=== PATIENT | female | born 2000 | race Caucasian/White ===

== ENCOUNTER 2018-01-11 22:31 | Emergency (ER) | payer SELFPAY ==
[2018-01-11] MEDS ORDERED: Naproxen 500 MG TAB ONE (23:15)
== END 2018-01-11 23:35 | disposition home or self-care (01) ==
LOC: MADERS 22:31
DX: S89.82XA Other specified injuries of left lower leg, initial encounter (principal); S89.81XA Other specified injuries of right lower leg, initial encounter; Y93.79 Activity, other specified sports and athletics
CPT/HCPCS: 99283

== ENCOUNTER 2018-07-16 20:58 | Emergency (ER) | payer MEDICAID, SELFPAY | END 2018-07-16 21:30 | disposition home or self-care (01) | LOC: MADERS 20:58 | DX: R51 Headache (principal); R05 Cough | CPT/HCPCS: 99281 ==

== ENCOUNTER 2019-07-16 16:20 | Emergency (ER) | payer SELFPAY | END 2019-07-16 17:12 | disposition home or self-care (01) | LOC: MADERS 16:20 | DX: J02.9 Acute pharyngitis, unspecified (principal) | CPT/HCPCS: 99282 ==

== ENCOUNTER 2019-09-29 14:34 | Emergency (ER) | payer SELFPAY ==
--- NOTE | 2019-09-29 15:31 | RAD ---
Exam: Chest one view HISTORY:Fever. Comparison: None. FINDINGS: Cardiac silhouette: Normal Aorta: Unremarkable Pulmonary vessels: Normal Costophrenic angles: Clear LUNGS: No masses or consolidation. Pneumothorax: None Osseous abnormalities: None IMPRESSION: No acute cardiopulmonary process.
== END 2019-09-29 16:26 | disposition home or self-care (01) ==
LOC: MADERS 14:34
DX: J20.9 Acute bronchitis, unspecified (principal)
CPT/HCPCS: 71045; 87081; 87430; 87804

== ENCOUNTER 2020-06-07 17:35 | Emergency (ER) | payer SELFPAY ==
[2020-06-08 16:30] LABS: SARS-CoV-2 MS2 Positive; SARS-CoV-2 N Gene Negative; SARS-CoV-2 S Gene Negative; SARS-CoV-2 by NAA Not Detected (NotDetected); SARS-CoV-2 orf1ab Negative
== END 2020-06-07 18:46 | disposition home or self-care (01) ==
LOC: MADERS 17:35
DX: J20.9 Acute bronchitis, unspecified (principal); Z20.828 Contact with and (suspected) exposure to other viral communicable diseases
CPT/HCPCS: 87635; 99283; U0003

== ENCOUNTER 2023-05-12 15:42 | Emergency (ER) | payer OTHER, SELFPAY ==
[2023-05-12] MEDS ORDERED: Ondansetron PF 4 MG/2 ML Vial ONE (16:11)
[2023-05-12] MEDS ORDERED: Sodium Chloride 0.9% 1,000 ML ONE (16:11)
[2023-05-12 16:30] LABS: Bilirubin Negative (Negative); Blood, Urine Negative (Negative); Clarity Cloudy (Clear); Glucose, Urine (Dipstick) Negative (Negative); Ketone, Urine Negative (Negative); Leukocyte Large (Negative); Nitrite Negative (Negative); Protein, Urine (Dipstick) Trace mg/dL (Neg-Trace)
[2023-05-12 16:31] LABS: Pregnancy Test - Urine (BHCG) Negative (Negative); Pregu Control Background? CLEAR/WHITE (CLR/WHITE); Pregu Control Bar Appear? YES (CONTROL BAR)
[2023-05-12 16:41] LABS: Anion Gap 15 mmol/L (10-20); BUN (Urea Nitrogen) 10 mg/dL (7.0-18.7); Calc. Creatinine Clearance 0 mL/min (70-130); Calcium 9.9 mg/dL (7.8-10.44); Carbon Dioxide 24 mmol/L (22-29); Chloride 104 mmol/L (98-107); Estimated GFR 103; Glucose 112 mg/dL (70-105); Sodium 139 mmol/L (136-145)
[2023-05-12 16:46] LABS: Bacteria/HPF Rare-Few HPF (None Seen); CAUTI Indications for Culture Dysuria,urgency,freq; RBC/HPF 0-3 HPF (0-3); Urine Culture Reflex Yes Yes; WBC/HPF Greater Than 50 HPF (0-3)
[2023-05-12 16:50] LABS: Hematocrit 37.8 % (36.0-47.0); Hemoglobin 11.4 g/dL (12.0-16.0); Mean Corpuscular HGB CONC 30.1 g/dL (32.0-36.0); Mean Corpuscular Hemoglobin 24.1 pg (27.0-31.0); Mean Corpuscular Volume 80.1 fl (78.0-98.0); Mean Platelet Volume 10.7 fL (7.4-10.4); Platelet Count 200 10x3/uL (130-400); RBC Distribution Width 16.6 % (11.5-14.5); Red Blood Cell (RBC) Count 4.71 mill/uL (4.20-5.40)
[2023-05-12 16:57] LABS: Band 1 % (5-11); Eosinophils 1 % (0-10); Lymphocytes 19 % (21-51); MDiff Complete? YES; Manual Diff?? YES; Monocytes 9 % (0-10); Neutrophil 61 % (42-75); Reactive Lymphocytes 9 % (0-10)
[2023-05-12 16:58] LABS: Platelet Adequacy Comment Appears Adequate
[2023-05-12] MEDS ORDERED: Ketorolac Tromethamine 30 MG/ML VIAL ONE (17:44)
== END 2023-05-12 18:18 | disposition home or self-care (01) ==
LOC: MADERS 15:42
DX: R11.2 Nausea with vomiting, unspecified (principal); R05.9 Cough, unspecified; R51.9 Headache, unspecified
CPT/HCPCS: 80048; 81001; 81025; 85025; 87077; 87086; 87186; 96361; 96374; 96375; J1885; J2405; J7050